=== PATIENT | male | born 1965 | race Caucasian/White ===

== ENCOUNTER 2018-07-15 08:09 | Day surgery (SDC) | payer BC ==
[2018-07-15 08:53] VITALS: BMI 47.7
--- NOTE | 2018-07-15 10:54 | PROC ---
Endoscopy Procedure Endoscopy procedure completed. Please see scanned procedure report.
[2018-07-15 11:02] VITALS: TEMP 97.7
[2018-07-15 11:50] VITALS: BP 101/57; PULSE 69
--- NOTE | 2018-07-16 10:55 | PATH ---
Surgical Pathology Report Patient Name: JOSE DE JESUS FLORES [facility]. Rec. #: [id number] /Age/Gender: 1965 (Age: 52) / M Account: [id number] Location: [facility]-ENDOSCOPY Taken: 07/15/2018 Received: 07/15/2018 Reported: 07/16/2018 Physicians: Cecil Chaney M.D. Specimen(s) Received A: BX DESCENDING COLON POLYP #1 B: BX DESCENDING COLON POLYP #2 C: RECTAL POLYP Clinical History Colon screening Postoperative diagnosis: Polyps Final Diagnosis A. DESCENDING COLON, POLYP #1, BIOPSY: TUBULAR ADENOMA. B. DESCENDING COLON, POLYP #2, BIOPSY: TUBULAR ADENOMA. C. RECTUM, POLYP, BIOPSY: TUBULAR ADENOMA. Electronically Signed Karoline Huntley M.D. Gross Description A. Received in formalin, labeled "descending colon polyp #1" is a rosenbaum, irregular portion of soft tissue measuring 0.4 cm. in greatest dimension. The specimen is submitted in toto in one cassette. B. Received in formalin, labeled "descending colon polyp #2" are 2 rosenbaum, irregular portions of soft tissue measuring 0.1 and 0.4 cm. in greatest dimension. The specimens are submitted in toto in one cassette. C. Received in formalin, labeled "polyp rectum" is a rosenbaum, irregular portion of soft tissue measuring 0.4 cm. in greatest dimension. The specimen is submitted in toto in one cassette. /07/15/2018 saudi07/15/2018
== END 2018-07-15 12:15 | disposition home or self-care (01) ==
LOC: JASU-ENDO 08:09
PROVIDERS: ATTEND Internal Medicine Gastroenterology
PROC: 0DBP8ZX Excision of Rectum, Via Natural or Artificial Opening Endoscopic, Diagnostic (ICD-10-PCS; 2018-07-15)
PROC: 0DBM8ZX Excision of Descending Colon, Via Natural or Artificial Opening Endoscopic, Diagnostic (ICD-10-PCS; principal; 2018-07-15 09:30)
DX: Z12.11 Encounter for screening for malignant neoplasm of colon (principal); D12.4 Benign neoplasm of descending colon; K62.1 Rectal polyp
CPT/HCPCS: 88305-TC